=== PATIENT | male | born 1980 | race Caucasian/White ===

== ENCOUNTER 2019-02-11 19:44 | Emergency (ER) | payer BC, OTHER ==
[~2019-02-11] VITALS: Ht 170.2 cm; Wt 75.0 kg
[2019-02-11 19:50] VITALS: BP 120/87; PULSE 90; RESP 14; Ht 170.2 cm; Wt 75.0 kg
--- NOTE | 2019-02-11 19:57 | ERD ---
ER Documentation Chief Complaint Chief Complaint BIB R39. FOUND [place] [employer] SLEEPING IN CAR. EMS STATED PT AOX 2. HPI This is a 38-year-old male with history of anxiety who presents to the ER after being brought in by EMS for possible altered mental status. EMS stated they found the patient sleeping in his car to [place] when they woke him up the patient was slightly confused. The patient states that he did smoke marijuana and states that he smokes marijuana daily. He denies any heroin use, opiate use, or any other illicit drug use. The patient states he is feeling fine and did not want to come to the hospital but was instructed to do so by police. He denies any homicidal ideation, denies any suicidal ideation. ROS All systems reviewed and are negative except as per history of present illness. PMhx/Soc Medical and Surgical Hx: pt denies Medical Hx, pt denies Surgical Hx History of Surgery: No Anesthesia Reaction: No Hx Neurological Disorder: No Hx Respiratory Disorders: No Hx Cardiac Disorders: No Hx Psychiatric Problems: No Hx Miscellaneous Medical Probl: No Hx Alcohol Use: No Hx Substance Use: Yes (MARIJUANA) Hx Tobacco Use: No Smoking Status: Never smoker Physical Exam Vitals Vital Signs Date Temp Pulse Resp B/P (MAP) Pulse Ox O2 O2 Flow FiO2 Time Delivery Rate 02/11/19 97.1 90 14 120/87 100 19:50 (98) Physical Exam INITIAL VITAL SIGNS: Reviewed by me GENERAL: The patient is well developed and appropriate for usual state of health in no apparent distress HEENT: Pupils equal, round, and reactive to light. EOMI. There is no scleral icterus. NECK: C-spine is soft and supple, there is no meningismus. There is no cervical lymphadenopathy. LUNGS: Clear to auscultation bilaterally. There are no rales, wheezes or rhonchi. HEART: Regular rate and rhythm, no murmurs, clicks, rubs or gallops. ABDOMEN: Soft, non-tender, non-distended. There are bowel sounds in all four quadrants. No rebound or guarding. EXTREMITIES: There is no peripheral cyanosis or edema. No focal swelling or erythema. NEUROLOGICAL: The patient moves all four extremities with 5/5 strength. Cranial nerves II - XII are intact. Normal gait. Alert and oriented to person place and time, no focal neurological deficits, GCS 15 SKIN: There is no apparent rash or petechiae. HEME/LYMPHATIC: There is no evidence of excessive bruising or lymphedema. PSYCHIATRIC: The patient does not appear anxious or depressed. Procedures/MDM EKG: Rate/Rhythm: [Normal Sinus Rhythm] QRS, ST, T-waves: [No changes consistent w/ acute ischemia] Impression: [No evidence of ischemia or arrhythmia] This 38-year-old male presents to the ER for evaluation of altered mental status. On my exam the patient is alert and oriented to person place and time, he has no focal neurological deficits. He has a GCS of 15. EMS stated that the patient was slightly altered when they woke him up from sleep. I asked him why he was sleeping in his car and he states that he is on a road trip and was ex tremely tired so he pulled over in his car and went to sleep. The patient did state that he took 1 tab of 1 mg Klonopin and smoked marijuana but denies any other illicit drug use. The patient is denying homicidal ideation, denying suicidal ideation. The patient's blood sugar is 110. His EKG is nonischemic. The patient is requesting to go back to his car and given the fact that he has no neuro deficits and is requesting to leave the patient will be discharged Departure Diagnosis: Primary Impression: Marijuana use Additional Impression: History of benzodiazepine use Condition: DERIC Grimm DO Feb 11, 2019 19:57
== END 2019-02-11 20:05 | disposition home or self-care (01) ==
LOC: E/R 19:44
DX: F12.90 Cannabis use, unspecified, uncomplicated (principal); Z86.59 Personal history of other mental and behavioral disorders
CPT/HCPCS: 82962; 93005